=== PATIENT | male | born 1970 | race Caucasian/White ===

== ENCOUNTER → 2024-01-04 14:59 | Outpatient (REF) | payer OTHER, SELFPAY | LOC: RAD 14:59 | PROVIDERS: ATTENDING PHYSICIAN Family Medicine | DX: M25.562 Pain in left knee (principal) | CPT/HCPCS: 73564 ==

== ENCOUNTER 2024-03-29 19:49 | Emergency (ER) | payer OTHER, SELFPAY ==
[2024-03-29 19:58] VITALS: BP 129/83
[2024-03-29 20:30] LABS: % Eosinophils 4.8 % (0-6); % Immature Granulocytes 0.3 % (0-0.5); % Lymphocytes 27.5 % (20.5-51.1); % Monocytes 12.7 % (1.7-9.3); % Neutrophils 53.7 % (42.2-75.2); Absolute Basophils 0.1 10^3/uL (0-0.2); Absolute Eosinophils 0.3 10^3/uL (0-0.7); Absolute Lymphocytes 1.7 10^3/uL (1.2-3.4); Absolute Monocytes 0.8 10^3/uL (0.1-0.6); Absolute Neutrophils 3.2 10^3/uL (1.4-6.5); Hematocrit 38.8 % (39.0-52.0); Hemoglobin 13.8 g/dL (13.0-18.0); Mean Corp Hgb Conc. 35.6 g/dL (33.0-37.0); Mean Corpuscular Hgb 31.3 pg (27.0-31.0); Mean Platelet Volume 9.5 fL (7.4-10.4); Nucleated Red Blood Cells % 0 % (-); Platelet Count 233 10^3/uL (130-400); Red Blood Cell Count 4.41 10^6/uL (4.70-6.10); Red Cell Dist. Width 14.1 % (11.5-14.5)
[2024-03-29 20:32] VITALS: BMI 30.2
[2024-03-29 20:47] LABS: ALT (SGPT) 42 U/L (0-50); AST (SGOT) 41 U/L (17-59); Albumin 4.2 g/dl (3.5-5.0); Alkaline Phosphatase 109 U/L (38-126); Blood Urea Nitrogen 17 mg/dl (9-20); Calcium 9.5 mg/dl (8.4-10.2); Carbon Dioxide 23 mmol/L (22-30); Chloride 104 mmol/L (98-107); Estimated Creatinine Clearance 115 ml/min; Glucose 142 mg/dl (70-99); Potassium 3.6 mmol/L (3.5-5.1); Sodium 137 mmol/L (135-145); Total Bilirubin 0.4 mg/dl (0.2-1.3); Total Protein 6.5 g/dl (6.3-8.2); eGFR > 60.00
--- NOTE | 2024-03-29 20:51 | ED.GENMED ---
History of Present Illness
General
Chief Complaint: Skin Problem
Source: patient
Exam Limitations: none
Time Seen by Provider: 03/29/24 20:24
Travel History
Have you had any contact with someone who has COVID-19?: No
Do you have any symptoms of coronavirus? Fever > 100 degrees, chills, cough, shortness of breath, sore throat, loss of taste or smell, muscle aches, or headache?: No
History of Present Illness
History of Present Illness:
This is a 53 year old male that comes in with c/o being bit by a spider. State that he believed this happened on Thursday. States that there was two fang hammond that could be seen at first. Now the area is red on the right chest. Denies any fever,
chills, chest pain, SOB, abd pain, nausea, vomiting, diarrhea, headache, dizziness, urinary burning.
Past History
Past History
ED Past Medical History: GERD and Other (diverticulitis, )
ED Past Surgical History: Other (Hernia repair X 2)
Social History
Tobacco: Smoker
Alcohol: None
Drug: None
Personal:
Living: with family
Employment: Employed
Review of Systems
Review of Systems
All Other Systems: ROS reviewed and negative except as documented in HPI and ROS
Constitutional: Reports no symptoms; Denies fever or chills
EENT: Reports no symptoms
Respiratory: Reports no symptoms; Denies cough or trouble breathing
Cardiac: Reports no symptoms; Denies chest pain
ABD/GI: Denies no symptoms, abdominal pain, nausea, vomiting or diarrhea
: Reports no symptoms; Denies dysuria, frequency or urgency
Musculoskeletal: Reports no symptoms
Skin: Reports other (Redness on the right lateral chest area. )
Neurological: Reports no symptoms; Denies dizzy or headache
Psychiatric: Reports no symptoms
Phy Exam
General Physical Exam
General Presentation: well appearing and no apparent distress
General age: appears stated age
General Skin: warm and dry
General Habitus: normal
General Mental: alert
General Hydration: appears well hydrated
ENT Exam
ENT Exam: TM's normal, pharynx normal and neck supple
Eye Exam
Eye Exam: EOMI
Cardiovascular Exam
Cardiovascular Exam: regular rate/rhythm, no edema, no murmur and normal peripheral pulses
Pulmonary Exam
Pulmonary Exam: lungs clear, no respiratory distress, no rales, chest non tender, no crackles, no rhonchi, no wheezing and no cough
Musculoskeletal Exam
Musculoskeletal Exam: full ROM
Skin Exam
Skin Exam: normal color, warm/dry, no petechia and redness (of the right lateral breast area with slight increased warmth. No sign of a bite noted)
Psychiatric Exam
Psychiatric Exam: normal mood/affect
Course
Orders/Labs/Results
Orders:
Orders
03/29/24 20:18
Complete Blood Count/With Diff Urgent
Comprehensive Metabolic Panel Urgent
Blood Culture Urgent
NINOSKA Source: Blood/Venous
Specimen Description:
03/29/24 20:20
Lactic Acid Urgent
03/29/24 21:07
Cephalexin Monohydrate [Keflex] 500 mg PO NOW STA
Sulfamethox./Trimethoprim Ds [Bactrim Ds 800 mg/160 mg] 1 tablet PO NOW STA
Abnormal Lab Results
03/29/24
20:18
RBC 4.41 L 10^6/uL
(4.70-6.10)
Hct 38.8 L %
(39.0-52.0)
MCH 31.3 H pg
(27.0-31.0)
Absolute Monos (auto) 0.8 H 10^3/uL
(0.1-0.6)
Monocytes % 12.7 H %
(1.7-9.3)
Glucose 142 H mg/dl
(70-99)
03/29/24 20:18
03/29/24 20:18
Glucose nonfasting. Lactic acid 2.0
Vital Signs
Initial and Last Documented VS:
Initial Vital Signs
Temp Pulse Resp BP Pulse Ox
98.3 F 82 20 129/83 98
03/29/24 19:58 03/29/24 19:58 03/29/24 19:58 03/29/24 19:58 03/29/24 19:58
Last Documented Vital Signs
Temp Pulse Resp BP Pulse Ox
98.3 F 82 20 129/83 98
03/29/24 19:58 03/29/24 19:58 03/29/24 19:58 03/29/24 19:58 03/29/24 19:58
MDM/Problems Addressed
Differential Diagnosis Includes:
Cellulitis right chest
MDM/Problems Addressed:
This is a 53 year old male that comes in with c/o a spider bit. States that this is what he thought it was as he saw two fang hammond. States that this happened on Thursday night in his home.
Will check labs and if normal will start antibiotics and discharge.
Back into see patient. Explained that his blood work is normal along with the Lactic acid. Patient area of redness was marked. Will start patient on antibiotics. Explained that if he would get a fever, increased redness or any other concerns he will
need to return to the emergency room.
Chronic conditions affecting care:
NA
Acute Exacerbation and/or Progression of Chronic Illness:
NA
*Pulse Oximetry
Patient hypoxic: no
*EKG
Interpreted by ED Provider?: NA
Rate: EKG- N/A
*Ssis Architect Interpretation
Rate: Ssis Architect- N/A
*Critical Care Note
Total Time (30-74mins, 75-104mins- exclusive of procedures): Not Applicable
ED Attending Note
-
Portions of this chart may have been created with voice recognition software.� Occasional wrong word or��sound alike� substitutions may have occurred due to the inherent limitations of voice recognition software.
Discharge Plan
Departure
Patient Disposition: Home (Routine Discharge)
Date of Disposition: 03/29/24
Time of Disposition: 21:10
Patient with high blood pressure during this ER visit?: Yes
Condition: Good
Covid-19: Not Applicable
Discharge Problem:
Cellulitis of chest wall
Instructions: Cellulitis (Skin Infection), Adult (DC)
Prescriptions:
New
cephalexin 500 mg capsule
500 mg PO QID 10 Days Qty: 39 0RF
sulfamethoxazole-trimethoprim [Bactrim DS] 800-160 mg tablet
1 tab PO BID Qty: 19 0RF
No Action
oxycodone-acetaminophen 5 MG/325 MG tablet
1 tab PO Q6HPRN PRN (Reason: pain) Qty: 12 0RF
tamsulosin 0.4 MG capsule
0.4 mg PO DAILY Qty: 5 0RF
ondansetron 4 MG tablet,disintegrating
4 mg PO TIDPRN PRN (Reason: nausea) Qty: 12 0RF
Referrals:
Antony Medina, DO [Family Provider] - Follow up in 2-3 days
Activity Restrictions/Additional Instructions:
As discussed, your blood work is normal. This looks to be a cellulitis which is a skin infection. It may have been caused by the bit. Please use the antibiotics as directed. You have been given your first dose here and prescriptions have been sent
to your Pharmacy. Please follow up with the family doctor for recheck in 2-3 days. IF THERE IS INCREASED REDNESS, YOU HAVE A FEVER, OR YOU HAVE ANY OTHER CONCERNS PLEASE RETURN TO THE EMERGENCY ROOM.
Interventions
Interventions:
*Risk Screen - Suicide Last Done: 03/29/24 19:58
*General Assessment Last Done: 03/29/24 19:58
*Neglect/Abuse Screening Last Done: 03/29/24 19:58
ED- Fall Risk Assessment Last Done: 03/29/24 19:58
*ED COVID-19 Vaccine History Last Done: 03/29/24 19:58
ED- Pulmonary Assessment Last Done: 03/29/24 20:30
ED-Skin Assessment Last Done: 03/29/24 20:30
Discharge Date and Time
Print Language: DANISH
[2024-03-29] MEDS: BACTRIM DS 800 MG/160 MG 1 TABLET PO (21:11)
[2024-03-29] MEDS: KEFLEX 500 MG PO (21:12)
== END 2024-03-29 21:21 | disposition home or self-care (01) ==
LOC: EMR 19:49
PROVIDERS: Clinical Nurse Specialist Family Health; Emergency Medicine; EMERGENCY PHYSICIAN Emergency Medicine; FAMILY PHYSICIAN Family Medicine
DX: L03.313 Cellulitis of chest wall (principal); F17.200 Nicotine dependence, unspecified, uncomplicated
CPT/HCPCS: 99283; 80053; 83605; 85025; 87040

== ENCOUNTER 2024-03-30 22:53 | Inpatient (IN) | payer OTHER, SELFPAY ==
[2024-03-30 20:39] VITALS: BMI 30.2
[2024-03-30 20:40] VITALS: BP 145/83
[2024-03-30 21:10] VITALS: BP 138/75
--- NOTE | 2024-03-30 21:21 | ED.GENMED ---
History of Present Illness
General
Chief Complaint: Skin Problem
Source: patient
Exam Limitations: none
Time Seen by Provider: 03/30/24 21:11
Travel History
Have you had any contact with someone who has COVID-19?: No
Do you have any symptoms of coronavirus? Fever > 100 degrees, chills, cough, shortness of breath, sore throat, loss of taste or smell, muscle aches, or headache?: No
History of Present Illness
History of Present Illness:
53-year-old male cellulitis of the chest wall. Started Bactrim and cephalexin yesterday. Very has spread today. Some increased erythema and burning sensation. No fever or chills
Past History
Past History
ED Past Medical History: GERD and Other (diverticulitis, )
ED Past Surgical History: Other (Hernia repair X 2)
Social History
Tobacco: Smoker
Alcohol: None
Drug: None
Personal:
Living: with family
Employment: Employed
Review of Systems
Review of Systems
All Other Systems: Not applicable
Constitutional: Denies fever or chills
Phy Exam
Physical Exam
Physical Exam:
GENERAL: Alert and oriented in no apparent distress
EYE: Orbits normal.
CARDIAC: Regular rate and rhythm without any obvious murmurs.
LUNGS: No respiratory distress
NEUROLOGICAL: Alert and oriented , grossly non-focal
SKIN: Warm and dry, large area of erythema to the right upper lateral chest wall. Areas marked. Extension of the erythema and warmth extending beyond this. No induration no drainage
MUSCULOSKELETAL: No edema,no deformity.Good color
PSYCH: Normal and appropriate interaction.
Course
Orders/Labs/Results
Orders:
Orders
03/30/24 Dinner
Regular
At Your Request: Full Participation
Does patient need a safe tray?: No
03/30/24 21:20
IV Insert/Care/Rem.- Treatment PRN
03/30/24 21:33
Basic Metabolic Panel Urgent
Complete Blood Count/With Diff Urgent
Blood Culture Q30M
NINOSKA Source: Blood/Venous
Specimen Description:
03/30/24 22:10
Blood Culture Q30M
NINOSKA Source: Blood/Venous
Specimen Description:
03/30/24 22:26
Admit/Transfer Patient As Directed
Co-Sign Provider:
Level of Care: Inpatient admission
Assign to:: Medical/Surgical
Physician / Group: Ailyn Charles - [facility]
Diagnosis: R chest wall cellulitis
Reason for Hospitalization: R chest wall cellulitis - IV Abx, cultures
Expected length of stay greater than two midnights?: Yes
ELOS- Estimated Length of Stay in days: 2
I certify the patient meets the requirements for IP care: Yes
03/30/24 22:27
Code Status As Directed
Resuscitation Status: Full Code
03/30/24 23:27
Acetaminophen [Tylenol] 650 mg PO Q4HPRN PRN
Bisacodyl [Dulcolax] 10 mg RECTAL [id number] PRN
Docusate W/Senna [Senokot-S] 1 tablet PO BIDPRN PRN
Ondansetron Injectable [Zofran] 4 mg IV Q6HPRN PRN
Polyethylene Glycol Powder [Miralax] 17 grams PO DAILYPRN PRN
03/30/24 23:27
Consult Notification Routine
Specialty to Notify: Infectious Disease
INFECTIOUS DISEASE CONSULT Routine
Consulting Provider: Etienne Solorio
Was physician already notified: No
Reason for consult: Right chest wall cellulitis, failed home Abx
Activity As Directed
Activity Level: As Tolerated
Pneumatic Compression Sleeves As Directed
Type: Knee high
Vital Signs As Directed
Frequency: Per unit guidelines
DX Deep Vein Thrombosis Video Routine
03/31/24 00:00
CeFAZolin 1 GRAM [Ancef] 1 gram in 5 ml IV Q8H
03/31/24 06:00
Basic Metabolic Panel IN AM
Complete Blood Count/No Diff IN AM
03/31/24 08:00
Bupropion(24Hr)Extended Releas [WELLBUTRIN XL (24 hour extended release)] 300 mg PO DAILY
Famotidine [Pepcid] 20 mg PO DAILY
Multivitamin [Theragran] 1 tablet PO DAILY
VANCOMYCIN Pharmacy to Dose [VANCOCIN Pharmacy to Dose] 1 each Pharmacy To Prepare [Call Pharmacy To Prepare] 0 ml IV PER PROTOCOL
Abnormal Lab Results
03/30/24
21:33
RBC 4.26 L 10^6/uL
(4.70-6.10)
Hct 38.0 L %
(39.0-52.0)
Absolute Monos (auto) 0.9 H 10^3/uL
(0.1-0.6)
Neutrophils % 38.6 L %
(42.2-75.2)
Monocytes % 16.7 H %
(1.7-9.3)
Glucose 111 H mg/dl
(70-99)
03/30/24 21:33
03/30/24 21:33
Vital Signs
Initial and Last Documented VS:
Initial Vital Signs
Temp Pulse Resp BP Pulse Ox
98.1 F 79 18 145/83 98
03/30/24 20:40 03/30/24 20:40 03/30/24 20:40 03/30/24 20:40 03/30/24 20:40
Last Documented Vital Signs
Temp Pulse Resp BP Pulse Ox
97.5 F 67 18 110/78 98
03/30/24 23:36 03/30/24 23:36 03/30/24 23:36 03/30/24 23:36 03/30/24 23:36
*Critical Care Note
Total Time (30-74mins, 75-104mins- exclusive of procedures): Not Applicable
ED Attending Note
-
Portions of this chart may have been created with voice recognition software.� Occasional wrong word or��sound alike� substitutions may have occurred due to the inherent limitations of voice recognition software.
Discharge Plan
Departure
Patient Disposition: Admit
Date of Disposition: 03/30/24
Time of Disposition: 22:03
Presentation/result/management discussed w/ accepting MD/DO: Hospitalist
Discharge Problem:
Chest wall cellulitis
Interventions
Interventions:
*Risk Screen - Suicide Last Done: 03/30/24 20:40
*General Assessment Last Done: 03/30/24 20:40
*Neglect/Abuse Screening Last Done: 03/30/24 20:40
ED- Fall Risk Assessment Last Done: 03/30/24 23:28
*ED COVID-19 Vaccine History Last Done: 03/30/24 21:12
*Nursing Disposition Last Done: 03/30/24 23:28
ED-Skin Assessment Last Done: 03/30/24 21:12
Discharge Date and Time
Discharge Date/Time: 03/30/24 23:28
[2024-03-30 21:47] LABS: % Basophils 0.9 % (0-2); % Eosinophils 5.1 % (0-6); % Immature Granulocytes 0.2 % (0-0.5); % Lymphocytes 38.5 % (20.5-51.1); % Monocytes 16.7 % (1.7-9.3); % Neutrophils 38.6 % (42.2-75.2); Absolute Basophils 0.1 10^3/uL (0-0.2); Absolute Eosinophils 0.3 10^3/uL (0-0.7); Absolute Monocytes 0.9 10^3/uL (0.1-0.6); Hemoglobin 13.2 g/dL (13.0-18.0); Mean Corp Hgb Conc. 34.7 g/dL (33.0-37.0); Mean Corpuscular Volume 89.2 fL (80.0-94.0); Mean Platelet Volume 9.6 fL (7.4-10.4); Nucleated Red Blood Cells % 0 % (-); Platelet Count 224 10^3/uL (130-400); Red Blood Cell Count 4.26 10^6/uL (4.70-6.10); Red Cell Dist. Width 14.2 % (11.5-14.5); White Blood Cell Count 5.3 10^3/uL (4.8-10.8)
[2024-03-30 21:59] LABS: Blood Urea Nitrogen 17 mg/dl (9-20); Calcium 9.6 mg/dl (8.4-10.2); Carbon Dioxide 27 mmol/L (22-30); Chloride 102 mmol/L (98-107); Estimated Creatinine Clearance 87 ml/min; Glucose 111 mg/dl (70-99); Potassium 4.3 mmol/L (3.5-5.1); Sodium 137 mmol/L (135-145); eGFR > 60.00
[2024-03-30 22:13] VITALS: BP 124/73
--- NOTE | 2024-03-30 22:21 | HPS.HSE ---
Family Physician
-
Family Physician: Antony Medina
Chief Complaint
-
skin problem
History of Present Illness
53 y/o M hx of GERD returns to ER for worsening cellulitis of R chest. Patient reports he was doing gardening on Thursday and did not feel any bites or itching. On Thursday he woke up with R chest redness. He noted fever/chills and pain. Took tylenol
with minimal relief. He presented to ER last evening and was given Keflex/Bactrim. The redness spread beyond the marked borders. Patient is convinced it was a spider bite; denies any trauma or cuts. Currently asymptomatic.
Medical History
Past Medical History
Past Medical History: Reports GERD
Past Surgical History: Reports Other (hernia repair)
Social History
Tobacco: Smoker
Alcohol: None
Drug: None
Personal:
Living: With Family
Employment: Employed
Family History
Family History: Not pertinent
Allergies / Home Medications
Allergies reflects when Allergies were last updated in [facility].
Home Medications with original date entered in [facility]
Allergy/Medication List:
Allergies
Allergy/AdvReac Type Severity Reaction Status Date / Time
No Known Allergies Allergy Verified 03/30/24 20:42
Home Medications
cephalexin 500 mg capsule 500 mg PO QID Skin issues 10 days #39 caps 03/29/24
sulfamethoxazole 800 mg-trimethoprim 160 mg tablet (Bactrim DS) 1 tab PO BID Skin issues #19 tabs 03/29/24
bupropion HCl 300 mg 24 hr tablet, extended release 300 mg PO DAILY 03/30/24
famotidine 20 mg tablet (Pepcid) 20 mg PO DAILY 03/30/24
multivitamin 1 tab PO DAILY 03/30/24
Review of Systems
-
A 12 point ROS was completed and negative except as noted: Yes
Physical Exam
Vital Signs
Vital Signs
Temp Pulse Resp BP Pulse Ox
98.1 F 79 18 138/75 98
03/30/24 20:40 03/30/24 20:40 03/30/24 20:40 03/30/24 21:10 03/30/24 21:37
Physical Exam
General: No Apparent Distress
HEENT: NormoCephalic and Anicteric
Respiratory: Clear; No Wheezes or Rales
Cardiac: S1/S2 and Regular Rhythm
Breast: Other (R breast with cellulitis, spreading towards midline/neck)
GI: Non Distended
Musculoskeletal: No Edema
Neuro: AO x 3
Psych: Calm
Laboratory Results
-
03/30/24 21:33
03/30/24 21:33
Data Reviewed
-
Lab Data: Labs Reviewed by me
Impression/Plan
-
Right chest wall cellulitis
- likely insect/spider bite as occurred likely during Gardening on Thursday
- no improvement with Keflex/Bactrim
- start Vanco/Ancef
- check MRSA swab, blood cultures
- monitor clinically
- consult ID
GERD - continue PPI
DVT ppx: SCDs
Code: Full
[2024-03-30 23:00] VITALS: BP 117/78
[2024-03-30 23:27] VITALS: BMI 29.3
[2024-03-30 23:36] VITALS: BP 110/78
[2024-03-30] MEDS: VANCOCIN 300 ML IV (23:45)
[2024-03-30] MEDS: VANCOCIN 300 MG IV (23:45)
[2024-03-31] MEDS: ANCEF 5 IV ×2 (00:16→08:14)
[2024-03-31] MEDS: ZOFRAN 4 MG IV (04:31)
[2024-03-31 05:13] LABS: Hemoglobin 15.5 g/dL (13.0-18.0); Mean Corp Hgb Conc. 34.4 g/dL (33.0-37.0); Mean Platelet Volume 10.1 fL (7.4-10.4); Platelet Count 225 10^3/uL (130-400); Red Cell Dist. Width 14.3 % (11.5-14.5); White Blood Cell Count 9.9 10^3/uL (4.8-10.8)
[2024-03-31 05:42] LABS: Blood Urea Nitrogen 16 mg/dl (9-20); Calcium 9.8 mg/dl (8.4-10.2); Carbon Dioxide 24 mmol/L (22-30); Chloride 106 mmol/L (98-107); Estimated Creatinine Clearance 84 ml/min; Glucose 114 mg/dl (70-99); Potassium 4.3 mmol/L (3.5-5.1); Sodium 139 mmol/L (135-145); eGFR > 60.00
[2024-03-31 07:10] VITALS: BP 121/67
[2024-03-31 07:47] VITALS: BP 121/67
[2024-03-31] MEDS: WELLBUTRIN XL (24 hour extended release) 300 MG PO (08:14)
[2024-03-31] MEDS: THERAGRAN 1 TABLET PO (08:14)
[2024-03-31] MEDS: PEPCID 20 MG PO (08:14)
--- NOTE | 2024-03-31 08:36 | PHA.VAN.IN ---
Assessment
- Assessment
Renal Function: Appears similar to baseline
Concomitant Antimicrobials: cefazolin
AUC Dosing Plan
- Dosing Variables
Dosing Weight (kg): 98
Dosing CrCl (ml/min): 84
Vd coefficient (L/kg): 0.7
- Empiric Dosing
Initial / Loading Dose: 1500mg - 03/30 23:45
Maintenance Regimen: Vanc 1000mg Q12H starting at 1800
Estimated AUC (mcg*h/mL): 408
Estimated Peak (mcg*h/mL): 24.7
Estimated Trough (mcg/ml): 10.9
Estimated Half Life (H): 9.3
- Monitoring
No levels ordered at this time: follow renal function - may require dose adjustment
Pharmacokinetics Vancomycin I
- -
Patient Age: 53
Patient Sex: Male
Vancomycin Day #: 1
Indication: Skin And Soft Tissue
Requesting Provider: Dr. Charles
Pertinent Antimicrobial Allergies:
NKDA
Height / Weight:
Height 6 ft
Actual Weight 97.795 kg
- Vital Signs / Lab Results
Temp Pulse Resp BP Pulse Ox
99.6 F 88 16 121/67 96
03/31/24 07:10 03/31/24 07:10 03/31/24 07:10 03/31/24 07:10 03/31/24 07:10
Lab Results - Hematology
03/30/24 03/31/24
21:33 04:27
WBC 5.3 9.9
Lab Results - Chemistry
03/30/24 03/31/24
21:33 04:27
BUN 17 16
Creatinine 1.2 1.1
Estimated Creat Clear 87 84
--- NOTE | 2024-03-31 09:55 | W.PN.HOSP.TC ---
Today's Communication/Plan
-
OK for DC today
Assessment / Plan
Assessment / Plan
Right chest wall cellulitis
- likely insect/spider bite as occurred likely during Gardening on Thursday
- only took one dose Keflex/Bactrim. Improvement overnight on IV Vanc/Cefazolin
- will discharge today on previously prescribed antibiotics.
GERD - continue PPI
DVT ppx: SCDs
Code: Full
Anticipated Discharge: Today
Subjective/Interval History
-
Date of Service: March 31, 2024
area of cellulitis is much improved
wants to go home today (has son's graduation)
Objective Data
-
Labs:
Laboratory Results
03/30/24 03/31/24
21:33 04:27
WBC 9.9
Hgb 15.5
Hct 45.0
Plt Count 225
Sodium 137 139
Potassium 4.3 4.3
Chloride 102 106
Carbon Dioxide 27 24
BUN 17 16
Creatinine 1.2 1.1
Glucose 111 H 114 H
Calcium 9.6 9.8
Vital Signs:
Vital Signs
Temp Pulse Resp BP Pulse Ox
99.6 F 88 16 121/67 96
03/31/24 07:10 03/31/24 07:10 03/31/24 07:10 03/31/24 07:10 03/31/24 07:10
I&O
03/30/24 03/31/24 04/01/24
06:59 06:59 06:59
Intake Total 760 / 760
Balance 760 / 760
Review of Systems
-
History Source: Patient
All other systems: Reviewed and negative
Physical Exam
-
General: No Apparent Distress
HEENT: PERRLA
Respiratory: Clear to Auscultation; Negative Wheezes
Cardiac: Regular Rhythm and S1/S2
GI: Soft and Nontender
Musculoskeletal: No Edema
Skin: Other (right chest with improving erythema, no area fluctuation, not tender, now receding from marked borders )
Neuro: AO x 3
Psych: Calm
Data Reviewed
-
Diagnostic Radiology: Report Reviewed by me
Labs: Labs Reviewed by me
--- NOTE | 2024-03-31 09:59 | W.DS.TRANS ---
DC Summary - Assembler Filters
-
Discharge Instructions:
Discharge Diagnosis/Procedures right chest wall cellulitis
Diet Regular
Activity As tolerated
Driving Restrictions As prior to admission
Bathing Restrictions None
Instructions:
Stand-Alone Forms:
Changes to Home Medications: No
Discharge Medications:
DC Medications w/original date entered in [facility]
cephalexin 500 mg capsule 500 mg PO QID Skin issues 10 days #39 caps 03/29/24
sulfamethoxazole 800 mg-trimethoprim 160 mg tablet (Bactrim DS) 1 tab PO BID Skin issues #19 tabs 03/29/24
bupropion HCl 300 mg 24 hr tablet, extended release 300 mg PO DAILY 03/30/24
famotidine 20 mg tablet (Pepcid) 20 mg PO DAILY 03/30/24
multivitamin 1 tab PO DAILY 03/30/24
Home Medication Changes
Pending Results: Yes
Additional Pending Results:
repeat blood cultures final
--- NOTE | 2024-03-31 10:22 | CM ---
CM attempted to assess Tony this am, however he was discharged and left the floor prior to being seen.
Pt reportedly independent with no needs.
--- NOTE | 2024-03-31 12:35 | W.DCSUMMARY ---
Discharge Summary
Discharge Data
Date of Admission: 03/30/24
Date of Discharge: 03/31/24
-
Pending Results: Yes
Additional Pending Results:
final blood cultures
Hospital Course
Discharging Physician : Dr. Glory Hernandez
Disposition : Home
Primary care physician : Dr. Antony Medina
Principal Discharge diagnosis : Right Chest Wall Cellulitis after spider bite
Hospital Course :
Mr. Tony Epstein is a 53 yo man with hx GERD, anxiety, recent ER Visit on 03/29 for right chest wall cellulitis post spider bite discharged on Bactrim/Keflex presents to the ER following day with increasing erythema beyond marked borders. He was not
septic on arrival. He was admitted to medicine for failure outpatient oral antibiotics and started on IV Vanc/IV Cefazolin. The following morning erythema was much improved with decreased tenderness to patient. He felt ready for discharge. He is
told to complete course of previous antibiotics prescribed to him (can subtract one day for time here). He is told to follow up closely with PCP.
Time spent on discharge was 32 minutes.
Important imaging findings :
Procedure findings :
Discharge Plan
-
Patient Disposition: Home (Routine Discharge)
Discharge Diagnosis/Procedures: right chest wall cellulitis
Diet: Regular
Activity: As tolerated
Driving Restrictions: As prior to admission
Bathing Restrictions: None
Referrals:
Antony Medina, DO [Family Provider] - in less than 1 week
Additional Discharge Medication Instructions: Please complete previously prescribed course of Bactrim and Keflex (can stop one day early given time spent in hospital). Please follow up with your PCP within the next week.
Prescriptions:
Continued
cephalexin 500 mg capsule
500 mg PO QID 10 Days Qty: 39 0RF
sulfamethoxazole-trimethoprim [Bactrim DS] 800-160 mg tablet
1 tab PO BID Qty: 19 0RF
multivitamin Tablet
1 tab PO DAILY
famotidine [Pepcid] 20 mg Tablet
20 mg PO DAILY
bupropion HCl 300 mg tablet extended release 24 hr
300 mg PO DAILY
Discharge Orders:
Discharge Patient (As Directed); Ordered 03/31/24
Ordered By: Glory Hernandez
Discharge Date and Time
Discharge Date/Time: 03/31/24 10:26
Print Language: BURUNDIAN
== END 2024-03-31 10:26 | disposition home or self-care (01) | DRG 603 ==
LOC: 4 EAST ACU 22:53
PROVIDERS: ADMITTING PHYSICIAN Internal Medicine; ATTENDING PHYSICIAN Student in an Organized Health Care Education/Training Program; EMERGENCY PHYSICIAN Emergency Medicine; FAMILY PHYSICIAN Family Medicine
DX: L03.313 Cellulitis of chest wall (principal); S20.361A Insect bite (nonvenomous) of right front wall of thorax, initial encounter; K21.9 Gastro-esophageal reflux disease without esophagitis; F17.200 Nicotine dependence, unspecified, uncomplicated; W57.XXXA Bitten or stung by nonvenomous insect and other nonvenomous arthropods, initial encounter; Y93.H2 Activity, gardening and landscaping
CPT/HCPCS: 80048; 85025; 85027; 87040; 99284; 99406

== ENCOUNTER → 2025-07-12 11:16 | Outpatient (REF) | payer OTHER, SELFPAY | LOC: DHSLP 11:16 | PROVIDERS: ATTENDING PHYSICIAN Internal Medicine; FAMILY PHYSICIAN Family Medicine | DX: G47.33 Obstructive sleep apnea (adult) (pediatric) (principal) | CPT/HCPCS: 95800 ==

== ENCOUNTER → 2025-07-24 13:59 | Outpatient (REF) | payer OTHER, SELFPAY | LOC: PAVMRI 13:59 | PROVIDERS: ATTENDING PHYSICIAN Physician Assistant | DX: M54.16 Radiculopathy, lumbar region (principal) | CPT/HCPCS: 72148 ==

== ENCOUNTER → 2025-09-12 09:07 | Outpatient (REF) | payer OTHER, SELFPAY | LOC: PAVMRI 09:07 | PROVIDERS: ATTENDING PHYSICIAN Physician Assistant | DX: M54.12 Radiculopathy, cervical region (principal) | CPT/HCPCS: 72141 ==